=== PATIENT | female | born 1975 | race Caucasian/White ===

== ENCOUNTER 2021-09-16 14:23 | Emergency (ER) | payer OTHER, SELFPAY ==
[2021-09-16 14:38] VITALS: BP 134/65; PULSE 87; RESP 24; TEMP 36.6; O2SAT 98
--- NOTE | 2021-09-16 14:59 | ED.EAR ---
HPI - Ear Problem General Chief complaint: Ear Stated complaint: Bilateral Ear Irritation,Mouth Irritation Time Seen by Provider: 09/16/21 14:47 Source: patient and RN notes reviewed Mode of arrival: ambulatory Limitations: no limitations History of Present Illness HPI Narrative: Patient presents today complaining of right ear pain since this morning, left ear with absent hearing x3 days, and pain to the inner right cheek for the last 3 days. She was diagnosed with COVID-19 3 days ago as well. She has been taking ibuprofen, Zyrtec, and vitamins. Denies drainage from either ear. Denies any additional symptoms that are causing her distress. MD Complaint: ear pain and decreased hearing Related Data Home Medications Medication Instructions Recorded Confirmed cetirizine [Zyrtec] 5 mg PO DAILY 09/16/21 09/16/21 Allergies Allergy/AdvReac Type Severity Reaction Status Date / Time No Known Allergies Allergy Verified 09/16/21 14:43 Review of Systems Review of Systems: CONSTITUTIONAL: Denies body aches, fever, chills, or sweats. EYES: Denies visual changes, redness, or discharge. ENT: Denies rhinorrhea, congestion, sore throat. + Ear pain, absent hearing, mouth pain CARDIOVASCULAR: Denies chest pain, palpitations, or edema. RESPIRATORY: Denies cough or dyspnea. GASTROINTESTINAL: Denies abdominal pain, nausea, vomiting, or diarrhea. GENITOURINARY: Denies dysuria or hematuria. SKIN: Denies rash, itching, or wounds. MUSCULOSKELETAL: Denies back pain, joint pain, or myalgia. NEUROLOGIC: Denies headache, numbness, tingling, or weakness. PSYCH: Denies depression or anxiety. [facility] Family History Family History Mother Family history of thyroid disease Hypertension Father Cerebrovascular accident Social History Social History Smoking status: Former smoker Smoking end date: 08/04/18 Alcohol intake: current Comments At time of signature, I have reviewed and agree with nursing past medical, surgical, social and family history unless otherwise noted. Please see nursing chart for further information. There is no relevant family history pertinent to the presenting complaint Exam Narrative: GENERAL: Well-appearing, well-nourished, and in no acute distress. HEAD: Normocephalic, atraumatic. EYES: EOMI. No redness or drainage. Conjunctivae normal. ENT: Mucous membranes pink and moist. Nares clear. No rhinorrhea. Bilateral TMs are occluded with bilateral cerumen impactions. Tiny circular ulceration to the right palatine arch surrounded in mild erythema. No edema. Uvula midline. NECK: Normal AROM. Supple. No lymphadenopathy. CHEST: No respiratory distress. EXTREMITIES: Normal range of motion. No edema. SKIN: Warm, dry, no rash. Capillary refill normal. Normal skin turgor. NEURO: No focal deficits. Alert and oriented x3. Gait steady. PSYCH: Normal affect. No signs of depression or anxiety. Course Course Level of Care: Express Care Visit Vital Signs Vital signs: Vital Signs Temperature 97.9 F 09/16/21 14:38 Pulse Rate 87 09/16/21 14:38 Respiratory Rate 24 H 09/16/21 14:38 Blood Pressure 134/65 09/16/21 14:38 Pulse Oximetry 98 09/16/21 14:38 Temperature 97.9 F 09/16/21 14:38 Pulse Rate 87 09/16/21 14:38 Respiratory Rate 24 H 09/16/21 14:38 Blood Pressure 134/65 09/16/21 14:38 Pulse Oximetry 98 09/16/21 14:38 Reviewed. Pt has been instructed to follow up with her PCP regarding her elevated blood pressure today. Procedures Ear Wax Removal Right Ear: Ear Wax Removal Date: 09/16/21 Ear Wax Removal Time: 15:05 Additional Comments: Earwax removal was attempted to the right ear with a lighted curette. As soon as the curette was placed in the ear, patient withdrew in pain. This procedure was discontinued. Medical Decision Making Differe
== END 2021-09-16 15:15 | disposition home or self-care (01) ==
PROVIDERS: Emergency Provider Nurse Practitioner; PCP Internal Medicine
DX: H61.23 Impacted cerumen, bilateral (principal); K12.0 Recurrent oral aphthae; Z87.891 Personal history of nicotine dependence
CPT/HCPCS: 69210; 99212; G0463

== ENCOUNTER 2021-11-19 10:51 | Outpatient (CLI) | payer OTHER, SELFPAY ==
--- NOTE | ~2021-11-19 | XR_ITS ---
EXAMINATION: XR chest 2V DATE: 11/19/2021 11:07 INDICATION: Cough TECHNIQUE: PA and lateral views of the chest were obtained. COMPARISON: Chest radiograph dated 01/06/2013 FINDINGS: The lungs remain clear with no focal airspace opacities, pulmonary edema, pleural effusion or pneumot horax. The cardiomediastinal silhouette is normal. Pectus excavatum. IMPRESSION: 1. No acute cardiopulmonary disease. Reviewed, dictated and finalized at location A.
== END 2021-11-19 10:52 | disposition home or self-care (01) ==
LOC: ANHIMG 10:53
PROVIDERS: PCP Internal Medicine; Visit Provider Nurse Practitioner
DX: R05.9 Cough, unspecified (principal)
CPT/HCPCS: 71046

== ENCOUNTER 2022-04-04 13:40 | Outpatient (CLI) | payer OTHER, SELFPAY ==
--- NOTE | ~2022-04-04 | XR_ITS ---
EXAMINATION: XR chest 2V DATE: 04/04/2022 14:00 INDICATION: Cough TECHNIQUE: PA and lateral views of the chest were obtained. COMPARISON: Chest radiograph dated 11/19/2021 FINDINGS: The lungs remain clear with no focal airspace opacities, pulmonary edema, pleural effusion or pneumot horax. The cardiomediastinal silhouette is normal. Mild to moderate thoracic spondylosis. Serpiginous sclerotic lesion at the proximal metaphyseal region of the right humerus with appearance suggesting either enchondroma or bone infarct. IMPRESSION: 1. No acute cardiopulmonary disease. Reviewed, dictated and finalized at location A.
== END 2022-04-04 13:41 | disposition home or self-care (01) ==
PROVIDERS: PCP Internal Medicine; Visit Provider Nurse Practitioner
DX: R05.9 Cough, unspecified (principal)
CPT/HCPCS: 71046

== ENCOUNTER 2022-04-22 17:18 | Outpatient (CLI) | payer OTHER, SELFPAY ==
--- NOTE | ~2022-04-22 | XR_ITS ---
EXAMINATION: XR humerus RT DATE: 04/22/2022 17:52 INDICATION: Disorder of bone, unspecified. TECHNIQUE: 2 views of right humerus were obtained. COMPARISON: Chest 2 views 05/10/2006, 01/06/2013, 11/19/2021 FINDINGS: Bone alignment is normal. No fracture. In the proximal humeral diaphysis, there is a 6.1 x 1.2 cm sclerotic lesion in a pattern of chondroid matrix. Joint spaces are normal. IMPRESSION: 1. Sclerotic lesion in proximal right humeral diaphysis, new from 05/10/2006. The differential diagnos is includes enchondroma and infarct. Reviewed, dictated and finalized at location A. IMPRESSION: 1. Sclerotic lesion in proximal right humeral diaphysis, new from 05/10/2006. Th e differential diagnosis includes enchondroma and infarct.
== END 2022-04-22 17:19 ==
PROVIDERS: PCP Internal Medicine; Visit Provider Nurse Practitioner
DX: M89.9 Disorder of bone, unspecified (principal)
CPT/HCPCS: 73060